=== PATIENT | female | born 1970 | race African-American/Black ===

== ENCOUNTER 2016-08-28 20:00 | Inpatient (IN) | payer BC, OTHER ==
[~2016-08-28] VITALS: Ht 175.3 cm; Wt 78.0 kg
[2016-08-28] MEDS ORDERED: MAG HYDROX/ALUMINUM HYD/SIMETH 30 ML ORAL.SUSP PO PRN (20:15)
[2016-08-28] MEDS ORDERED: ACETAMINOPHEN 325 MG TABLET. PO PRN (20:15)
[2016-08-28] MEDS ORDERED: 0.9 % SODIUM CHLORIDE 10 ML DISP.SYRIN. IV PRN (20:15)
[2016-08-28] MEDS ORDERED: LIDOCAINE 1% PF 30 ML VIAL. INJ PRN (20:15)
[2016-08-28] MEDS ORDERED: CITRIC ACID/SODIUM CITRATE 30 ML SOLUTION. PO PRN (20:15)
[2016-08-28] MEDS ORDERED: FENTANYL PF 100 MCG/2 ML VIAL. IV PRN (20:15)
[2016-08-28] MEDS ORDERED: TERBUTALINE 1 MG/ML VIAL. SQ PRN (20:15)
[2016-08-28] MEDS ORDERED: IBUPROFEN 800 MG TABLET. PO PRN (20:15)
[2016-08-28] MEDS ORDERED: ONDANSETRON PF 4 MG/2 ML VIAL. IV PRN (20:15)
[2016-08-28] MEDS ORDERED: OXYTOCIN 30 UNIT/500 ML PREMIX 500 ML IV PRN ×2 (20:15)
[2016-08-28] MEDS ORDERED: DIPHENHYDRAMINE HCL 25 MG CAPSULE PO PRN ×2 (20:15→20:30)
[2016-08-28 20:50] VITALS: BP 104/60
[2016-08-28] MEDS: IV RINGERS,LACTATED 1000ML 1,000 ML IV SCH (20:58)
[2016-08-28] MEDS ORDERED: DINOPROSTONE 10 MG SUPP.VAG VG ONE (21:00)
[2016-08-28 21:13] LABS: HEMATOCRIT 35.8 % (36.0-47.0); HEMOGLOBIN 11.8 g/dL (12.0-15.5); RED BLOOD COUNT 3.61 x10^6/uL (3.50-5.40); RED CELL DISTRIBUTION WIDTH 14.5 % (11.5-14.5); WHITE BLOOD COUNT 7.9 x10^3/uL (4.0-11.0)
[2016-08-28] MEDS ORDERED: FOLI1TAB16 PO (21:37)
[2016-08-29] MEDS: IV RINGERS,LACTATED 1000ML 1,000 ML IV SCH ×3 (03:56→21:29)
[2016-08-29] MEDS ORDERED: PENICILLIN G K 5,000,000 UNIT in IV NORMAL SALINE 100ML 100 ML IV ONE (06:00)
[2016-08-29] MEDS ORDERED: OXYTOCIN in NORMAL SALINE PREMIX 30 UNIT/500 ML BAG. IV ONE (07:00)
--- NOTE | 2016-08-29 08:31 | PDOC1 ---
OB - History Hx of Present Care: Good Care Ultrasounds: Normal mid trimester US Obstetrical Complications: Other (Oligohydramnios) Medical Complications: None Past Family/Social History * Past Medical, Surgical, Family and Obstetric Histories reviewed from chart. Rubella: Immune RPR/VDRL: Negative GBS Status: Positive HBsAG: Negative OB - Chief Complaint & HPI Date of Admission: Date of Admission: Aug 28, 2016 at 20:00 Chief Complaint/History : 1 Para: 0 EGA: 40 Reason for admission: induction of labor Indication for induction: other (Oligohydramnios) Admission Nurse Assessment Rev: Yes Problems: OB - Admission Exam Physical Exam Vitals: VS - Last 72 Hours, by Label Date Time Temp Pulse Resp B/P Pulse Ox O2 Delivery O2 Flow Rate FiO2 08/28/16 20:50 98.3 68 18 104/60 Room Air 98.3 HEENT: Normal Heart: Regular Rate Lungs: Clear Abdomen: Gravid, Non tender, Soft Extremities: Edema Reflexes: Normal Cervical Dilatation: Fingertip Effacement: 25% Station: -3 Membranes: Intact Heart Rate: Normal Accelerations: Accelerations Present Decelerations: No decelerations Contractions on Admission: >10 Minutes Apart Intensity: Mild Text A: 40 wks IUP Oligohydramnios GBS positive P: Admit for IOL for Oligohyramnios with cervidil, then pitocin. Start Pen G when in active labor. OTF RAMOS Jr, MD Aug 29, 2016 08:31
[2016-08-29] MEDS ORDERED: DINOPROSTONE 10 MG SUPP.VAG VG ONE ×2 (09:00→19:15)
[2016-08-30] MEDS: IV RINGERS,LACTATED 1000ML 1,000 ML IV SCH ×4 (00:24→19:19)
--- NOTE | 2016-08-30 08:06 | PDOC ---
OB Progress Note Date of Service 08/30/16 Time of Evaluation 0755 Notes PT. feeling well. No progress with induction with cervidil x 2. Pt. began to have late decels overnight and had cervidil removed. Will allow patient to shower and then start pitocin. Lab Laboratory Tests Test 08/28/16 20:50 White Blood Count 7.9x10^3/uL (4.0-11.0) Red Blood Count 3.61x10^6/uL (3.50-5.40) Hemoglobin 11.8g/dL (12.0-15.5) Hematocrit 35.8% (36.0-47.0) Mean Corpuscular Volume 99fL (79-100) Mean Corpuscular Hemoglobin 33pg (25-35) Mean Corpuscular Hemoglobin Concent 33g/dL (31-37) Red Cell Distribution Width 14.5% (11.5-14.5) Platelet Count 210x10^3/uL (140-400) RPR Titer Additional Testing Non reactive (Non Reactive) Medications Current Medications Sodium Chloride 3 ml 3 ml QSHIFT PRN IV AFTER MEDS AND BLOOD DRAWS; Start 08/28 at 20:15 Lactated Ringer's (Iv Lactated Ringers) 1,000 ml @ 125 mls/hr Q8H IV Last administered on 08/30/16t 04:17; Start 08/28/16 at 20:03 Fentanyl Citrate (Fentanyl 2ml Vial) 100 mcg PRN Q30MIN PRN IV Severe pain; Start 08/28/16 at 20:15 Acetaminophen (Tylenol) 650 mg PRN Q6HRS PRN PO MILD PAIN / TEMP; Start at 20:15 Ondansetron HCl (Zofran) 4 mg PRN Q4HRS PRN IV NAUSEA/VOMITING; Start 08/28/16 at 20:15 Al Hydroxide/Mg Hydroxide (Mylanta Plus Xs) 30 ml PRN Q4HRS PRN PO HEARTBURN / GAS; Start 08/28/16 at 20:15 Citric Acid/ Sodium Citrate (Bicitra) 30 ml 1X PRN PRN PO DYSPEPSIA; Start 04/05 at 20:15; Stop 08/29/16 at 20:14; Status DC Terbutaline Sulfate (Brethine) 0.25 mg 1X PRN PRN SQ SEE COMMENTS; Start at 20:15; Stop 08/29/16 at 20:14; Status DC Lidocaine HCl 30 ml 30 ml 1X PRN PRN INJ SEE COMMENTS; Start 08/28/16 at 20:15 ; Stop 08/30/16 at 20:14 Oxytocin/Sodium Chloride 500 ml @ 0 mls/hr CONT PRN IV SEE I/O RECORD; Start at 20:15 Oxytocin/Sodium Chloride (Oxytocin Premix Infusion) 500 ml @ 0 mls/hr CONT PRN PRN IV Post delivery bleeding; Start 08/28/16 at 20:15 Ibuprofen 800 mg 800 mg PRN Q6HRS PRN PO PAIN; Start 08/28/16 at 20:15 Penicillin G Potassium [id number] unit/Sodium Chloride 100 ml @ 100 mls/hr 1X ONCE IV ; Start 08/29/16 at 06:00; Stop 08/29/16 at 06:59; Status DC Penicillin G Potassium/Sodium Chloride (Pfizerpen/Iv Sodium Chloride 0.9% 50ml) 50 ml @ 100 mls/hr Q4H IV ; Start 08/29/16 at 10:00 Diphenhydramine HCl (Benadryl) 25 mg PRN Q6HRS PRN PO ITCHING; Start 08/28/16 at 20:15 Dinoprostone (Cervidil) 10 mg 1X ONCE VG Last administered on 08/28/16 21:14 ; Start 08/28/16 at 21:00; Stop 08/28/16 at 21:01; Status DC Diphenhydramine HCl (Benadryl) 50 mg PRN Q6HRS PRN PO ITCHING; Start 08/28/16 at 20:30 Oxytocin/Sodium Chloride (Oxytocin Premix Infusion) 30 unit STK-MED ONCE IV ; Start 08/29/16 at 07:00; Stop 08/29/16 at 08:34; Status DC Dinoprostone (Cervidil) 10 mg 1X ONCE VG Last administered on 08/29/16 09:35 ; Start 08/29/16 at 09:00; Stop 08/29/16 at 09:02; Status DC Dinoprostone (Cervidil) 10 mg 1X ONCE VG Last administered on 08/29/16 21:29 ; Start 08/29/16 at 19:15; Stop 08/29/16 at 19:16; Status DC Active Scripts Active Reported Folic Acid 1 Mg Tablet 1 Mg PO DAILY Exam Abd: soft, non tender NST: Category 1 now. Assessment A: 40 + 2 wks IUP Oligohydramnios AMA P: Start pitocin. If Category 3 then proceed with c/s. OTF RAMOS Jr, MD Aug 30, 2016 08:06
[2016-08-30] MEDS: PENICILLIN G K 2,500,000 UNIT in IV NORMAL SALINE 50ML 50 ML IV SCH ×2 (12:41→16:28)
[2016-08-30] MEDS ORDERED: ROPIVacaine 0.2% IN 0.9%NACL PF 40 MG/20 ML DISP.SYRIN. ONE ×2 (18:37→18:40)
[2016-08-30] MEDS ORDERED: L&D EPIDURAL CASSETTE 100 ML EP ONE (18:38)
[2016-08-30] MEDS ORDERED: L&D EPIDURAL CASSETTE 100 ML PUMP.RESVR. EP ONE (18:40)
--- NOTE | 2016-08-30 22:16 | PDOC ---
VAGINAL DELIVERY DATE DATE: 08/30/16 TIME: 22:14 : 1 Para: 1 EGA: 40 VAGINAL DELIVERY: VTX VACCUM ASSISTED: No PLACENTA: Spontaneous 9/9 SEX: Female WEIGHT Weight [ 3280 gm] Nuchal Cord: No Amniotic Fluid: Clear PAIN: Epidural EPISIOTOMY: No EXTENSION: No EBL 300 ml COMPLICATIONS none CONDITION pt. stable Signs of Intrauterine Infectio: None Shoulder Dystocia: No Problems: OTF RAMOS Jr, MD Aug 30, 2016 22:16
[2016-08-30] MEDS ORDERED: OXYCODONE/APAP 5/325 TABLET. PO PRN (22:30)
[2016-08-30] MEDS ORDERED: BENZOCAINE 20% TOPICAL AEROSOL SPRAY 57GM CAN. TP PRN (22:30)
[2016-08-30] MEDS ORDERED: PHENYLEPH/MINERAL OIL/PETROLAT RECTAL OINTMENT 28GM TUBE. RC PRN (22:30)
[2016-08-30] MEDS ORDERED: OXYTOCIN 30 UNIT/500 ML PREMIX 500 ML IV PRN (22:30)
[2016-08-30] MEDS ORDERED: DIPHENHYDRAMINE HCL 25 MG CAPSULE PO PRN (22:30)
[2016-08-30] MEDS ORDERED: HYDROCORTISONE 1% TOPICAL OINTMENT 30GM TUBE. TP PRN (22:30)
[2016-08-30] MEDS ORDERED: ACETAMINOPHEN 325 MG TABLET. PO PRN (22:30)
[2016-08-30] MEDS ORDERED: SIMETHICONE 80 MG TAB.CHEW PO PRN (22:30)
[2016-08-30] MEDS ORDERED: IBUPROFEN 800 MG TABLET. PO PRN (22:30)
[2016-08-30] MEDS ORDERED: MAGNESIUM HYDROXIDE 2,400 MG/30 ML ORAL.SUSP. PO PRN (22:30)
[2016-08-30] MEDS ORDERED: MAG HYDROX/ALUMINUM HYD/SIMETH 30 ML ORAL.SUSP PO PRN (22:30)
[2016-08-30] MEDS ORDERED: DOCUSATE SODIUM 100 MG CAPSULE. PO PRN (22:30)
[2016-08-30] MEDS ORDERED: ZOLPIDEM 5 MG TABLET. PO PRN (22:30)
[2016-08-30] MEDS ORDERED: 0.9 % SODIUM CHLORIDE 10 ML DISP.SYRIN. IV PRN (22:30)
[2016-08-30] MEDS ORDERED: MMR per PROTOCOL. MC PRN (22:30)
[2016-08-31] MEDS ORDERED: AMMONIA AROMATIC 15% INHALANT AMPUL. ONE (00:34)
[2016-08-31 00:45] VITALS: BP 92/55
[2016-08-31 03:20] VITALS: BP 98/55
[2016-08-31 06:03] VITALS: BP 91/55
[2016-08-31] MEDS ORDERED: FERROUS SULFATE 325 MG TABLET. PO SCH (08:00)
[2016-08-31 08:37] LABS: BASO % 0 % (0-3); EOS % 1 % (0-3); HEMATOCRIT 32.6 % (36.0-47.0); HEMOGLOBIN 10.7 g/dL (12.0-15.5); LYMPH # 1.3 x10^3/uL (1.0-4.8); LYMPH % 11 % (24-48); MEAN CORPUSCULAR HEMOGLOBIN 33 pg (25-35); MEAN CORPUSCULAR HGB CONC 33 g/dL (31-37); MEAN CORPUSCULAR VOLUME 99 fL (79-100); MONO % 9 % (0-9); NEUT % 80 % (31-73); PLATELET COUNT 172 x10^3/uL (140-400); RED CELL DISTRIBUTION WIDTH 14.8 % (11.5-14.5); WHITE BLOOD COUNT 11.8 x10^3/uL (4.0-11.0)
--- NOTE | 2016-08-31 13:36 | PDOC ---
OB Progress Note Date of Service 08/31/16 Time of Evaluation 1335 Notes Pt. feeling well. Lochia minimal. Breast feeding. No complaints. Lab Laboratory Tests Test 08/31/16 08:10 White Blood Count 11.8x10^3/uL (4.0-11.0) Red Blood Count 3.30x10^6/uL (3.50-5.40) Hemoglobin 10.7g/dL (12.0-15.5) Hematocrit 32.6% (36.0-47.0) Mean Corpuscular Volume 99fL (79-100) Mean Corpuscular Hemoglobin 33pg (25-35) Mean Corpuscular Hemoglobin Concent 33g/dL (31-37) Red Cell Distribution Width 14.8% (11.5-14.5) Platelet Count 172x10^3/uL (140-400) Neutrophils (%) (Auto) 80% (31-73) Lymphocytes (%) (Auto) 11% (24-48) Monocytes (%) (Auto) 9% (0-9) Eosinophils (%) (Auto) 1% (0-3) Basophils (%) (Auto) 0% (0-3) Neutrophils # (Auto) 9.4x10^3uL (1.8-7.7) Lymphocytes # (Auto) 1.3x10^3/uL (1.0-4.8) Monocytes # (Auto) 1.0x10^3/uL (0.0-1.1) Eosinophils # (Auto) 0.1x10^3/uL (0.0-0.7) Basophils # (Auto) 0.0x10^3/uL (0.0-0.2) Laboratory Tests Test 08/31/16 08:10 White Blood Count 11.8x10^3/uL (4.0-11.0) Red Blood Count 3.30x10^6/uL (3.50-5.40) Hemoglobin 10.7g/dL (12.0-15.5) Hematocrit 32.6% (36.0-47.0) Mean Corpuscular Volume 99fL (79-100) Mean Corpuscular Hemoglobin 33pg (25-35) Mean Corpuscular Hemoglobin Concent 33g/dL (31-37) Red Cell Distribution Width 14.8% (11.5-14.5) Platelet Count 172x10^3/uL (140-400) Neutrophils (%) (Auto) 80% (31-73) Lymphocytes (%) (Auto) 11% (24-48) Monocytes (%) (Auto) 9% (0-9) Eosinophils (%) (Auto) 1% (0-3) Basophils (%) (Auto) 0% (0-3) Neutrophils # (Auto) 9.4x10^3uL (1.8-7.7) Lymphocytes # (Auto) 1.3x10^3/uL (1.0-4.8) Monocytes # (Auto) 1.0x10^3/uL (0.0-1.1) Eosinophils # (Auto) 0.1x10^3/uL (0.0-0.7) Basophils # (Auto) 0.0x10^3/uL (0.0-0.2) Medications Current Medications Sodium Chloride 3 ml 3 ml QSHIFT PRN IV AFTER MEDS AND BLOOD DRAWS; Start 08/28 at 20:15; Stop 08/30/16 at 22:28; Status DC Lactated Ringer's (Iv Lactated Ringers) 1,000 ml @ 125 mls/hr Q8H IV Last administered on 08/30/16t 19:19; Start 08/28/16 at 20:03 Fentanyl Citrate (Fentanyl 2ml Vial) 100 mcg PRN Q30MIN PRN IV Severe pain; Start 08/28/16 at 20:15 Acetaminophen (Tylenol) 650 mg PRN Q6HRS PRN PO MILD PAIN / TEMP; Start at 20:15; Stop 08/30/16 at 22:28; Status DC Ondansetron HCl (Zofran) 4 mg PRN Q4HRS PRN IV NAUSEA/VOMITING; Start 08/28/16 at 20:15 Al Hydroxide/Mg Hydroxide (Mylanta Plus Xs) 30 ml PRN Q4HRS PRN PO HEARTBURN / GAS; Start 08/28/16 at 20:15; Stop 08/30/16 at 22:28; Status DC Citric Acid/ Sodium Citrate (Bicitra) 30 ml 1X PRN PRN PO DYSPEPSIA; Start 04/05 at 20:15; Stop 08/29/16 at 20:14; Status DC Terbutaline Sulfate (Brethine) 0.25 mg 1X PRN PRN SQ SEE COMMENTS; Start at 20:15; Stop 08/29/16 at 20:14; Status DC Lidocaine HCl 30 ml 30 ml 1X PRN PRN INJ SEE COMMENTS; Start 08/28/16 at 20:15 ; Stop 08/30/16 at 20:14; Status DC Oxytocin/Sodium Chloride 500 ml @ 0 mls/hr CONT PRN IV SEE I/O RECORD Last administered on 08/30/16 08:24; Start 08/28/16 at 20:15; Stop 08/30/16 at 22:29 ; Status DC Oxytocin/Sodium Chloride (Oxytocin Premix Infusion) 500 ml @ 0 mls/hr CONT PRN PRN IV Post delivery bleeding; Start 08/28/16 at 20:15 Ibuprofen 800 mg 800 mg PRN Q6HRS PRN PO PAIN; Start 08/28/16 at 20:15; Stop at 22:29; Status DC Penicillin G Potassium [id number] unit/Sodium Chloride 100 ml @ 100 mls/hr 1X ONCE IV Last administered on 08/30/16 08:24; Start 08/29/16 at 06:00; Stop 05/05 at 06:59; Status DC Penicillin G Potassium/Sodium Chloride (Pfizerpen/Iv Sodium Chloride 0.9% 50ml) 50 ml @ 100 mls/hr Q4H IV Last administered on 08/30/16 16:28; Start at 10:00; Stop 08/31/16 at 08:13; Status DC Diphenhydramine HCl (Benadryl) 25 mg PRN Q6HRS PRN PO ITCHING; Start 08/28/16 at 20:15; Stop 08/30/16 at 22:29; Status DC Dinoprostone (Cervidil) 10 mg 1X ONCE VG Last administered on 08/28/16 21:14 ; Start 08/28/16 at 21:00; Stop 08/28/16 at 21:01; Status DC Diphenhydramine HCl (Benadryl) 50 mg PRN Q6HRS PRN PO ITCHING; Start 08/28/16 at 20:30 Oxytocin/Sodium Chloride (Oxytocin Premix Infusion) 30 unit STK-MED ONCE IV ; Start 08/29/16 at 07:00; Stop 08/29/16 at 08:34; Status DC Dinoprostone (Cervidil) 10 mg 1X ONCE VG Last administered on 08/29/16t 09:35 ; Start 08/29/16 at 09:00; Stop 08/29/16 at 09:02; Status DC Dinoprostone (Cervidil) 10 mg 1X ONCE VG Last administered on 08/29/16t 21:29 ; Start 08/29/16 at 19:15; Stop 08/29/16 at 19:16; Status DC Ropivacaine 40 mg 40 mg STK-MED ONCE .ROUTE ; Start 08/30/16 at 18:37; Stop at 18:38; Status DC Ropivacaine/ Fentanyl/NS (Mhdvnphl-Whouv-TT 3 Mcg-0.1%) 100 ml @ As Directed STK-MED ONCE EP ; Start 08/30/16 at 18:38; Stop 08/30/16 at 18:39; Status DC Sodium Chloride 10 ml 10 ml QSHIFT PRN IV AFTER MEDS AND BLOOD DRAWS; Start at 22:30 Oxytocin/Sodium Chloride (Oxytocin Premix Infusion) 500 ml @ 62.5 mls/hr CONT PRN IV SEE I/O RECORD; Start 08/30/16 at 22:30; Stop 08/31/16 at 06:29; Status DC Acetaminophen (Tylenol) 650 mg PRN Q6HRS PRN PO MILD PAIN / TEMP; Start at 22:30 Ibuprofen (Motrin) 800 mg PRN Q8HRS PRN PO INFLAMMATION/PAIN PREVENTION; Start 08/30/16 at 22:30 Docusate Sodium (Colace) 100 mg PRN BID PRN PO CONSTIPATION; Start 08/30/16 at 22:30 Magnesium Hydroxide (Milk Of Magnesia) 2,400 mg PRN DAILY PRN PO CONSTIPATION; Start 08/30/16 at 22:30 Al Hydroxide/Mg Hydroxide (Mylanta Plus Xs) 30 ml PRN Q4HRS PRN PO HEARTBURN / GAS; Start 08/30/16 at 22:30 Simethicone (Gas-X) 80 mg PRN AFTMEALHC PRN PO GAS / BLOATING; Start 08/30/16 at 22:30 Diphenhydramine HCl (Benadryl) 25 mg PRN Q6HRS PRN PO ITCHING; Start 08/30/16 at 22:30 Benzocaine (Americaine) 1 spray PRN QID PRN TP TOPICAL PAIN; Start 08/30/16 at 22:30 Phenyleph/Shark Oil/Min Oil/Petrol (Preparation H) 1 yana PRN QID PRN RC RECTAL PAIN; Start 08/30/16 at 22:30 Hydrocortisone (Cortaid) 1 yana PRN QID PRN TP PERINEAL PAIN; Start 08/30/16 at 22:30 Ferrous Sulfate (Feosol) 325 mg BIDWMEALS PO ; Start 08/31/16 at 08:00; Stop at 08:13; Status DC Zolpidem Tartrate (Ambien) 5 mg PRN QHS PRN PO INSOMNIA, MAY REPEAT X1; Start 08/30/16 at 22:30 Info (Do NOT chart on this placeholder) 1 ea 1X PRN PRN MC SEE COMMENTS; Start 08/30/16 at 22:30 Info (Do NOT chart on this placeholder) 1 ea 1X PRN PRN MC SEE COMMENTS; Start 08/30/16 at 22:30 Oxycodone/ Acetaminophen (Percocet 5/325) 2 tab PRN Q4HRS PRN PO MODERATE PAIN , SEVERE PAIN; Start 08/30/16 at 22:30 Ammonia (Aromatic Spirit) (Amoply) 1 each STK-MED ONCE .ROUTE ; Start 08/31/16 at 00:34; Stop 08/31/16 at 00:35; Status DC Ropivacaine/ Fentanyl/NS (Sjnvchmi-Lyrcr-CO 3 Mcg-0.1%) 100 ml STK-MED ONCE EP ; Start 08/30/16 at 18:40; Stop 08/31/16 at 08:47; Status DC Ropivacaine 40 mg STK-MED ONCE .ROUTE ; Start 08/30/16 at 18:40; Stop 08/31/16 at 08:47; Status DC Active Scripts Active Reported Folic Acid 1 Mg Tablet 1 Mg PO DAILY Exam Abd: soft,non tender, fundus firm Assessment PPD#1 s/p Plan of Care: Continue current Tx, Mgmt OTF RAMOS Jr, MD Aug 31, 2016 13:36
[2016-08-31 15:00] VITALS: BP 98/63
[2016-08-31 15:01] VITALS: BP 99/60
[2016-08-31 21:30] VITALS: BP 100/70
[2016-09-01 05:59] VITALS: BP 92/50
[2016-09-01] MEDS ORDERED: FLUTICASONE 50MCG/NASAL SPRAY 16GM BOTTLE. NS SCH (09:00)
--- NOTE | 2016-09-01 10:01 | PDOC3 ---
OB DISCHARGE SUMMARY DATE OF ADMISSION: 08/28/16 DATE OF DISCHARGE: 09/01/16 REASON FOR ADMISSION: Induction of labor PROCEDURES: Biophysicial Profile INTRAPARTUM PROCEDURES: Spontanous Vag Deliv PROCEDURES: None OPERATIONS: None DISCHARGE DIAGNOSIS: Term Delivered DISCHARGE INFORMATION: Activity, Diet HOSPITAL COURSE Unremarkable CONDITION AT DISCHARGE Stable CACHORRO HAMPTON MD Sep 01, 2016 10:01
[2016-09-01] MEDS ORDERED: HYDR-971 PO (10:06)
[2016-09-01] MEDS ORDERED: NAPR500T3 PO (10:06)
[2016-09-01 10:27] VITALS: BP 89/51
[2016-09-01 15:10] VITALS: BP 106/66
[2016-09-01 18:31] VITALS: BP 98/53
== END 2016-09-01 18:41 | disposition home or self-care (01) | DRG 775 ==
LOC: 3 SO LND 20:00 → 3 NORTH 08-31 01:00
PROVIDERS: ADMIT Obstetrics & Gynecology; ATTEND Obstetrics & Gynecology
PROC: 10E0XZZ Delivery of Products of Conception, External Approach (ICD-10-PCS; principal; 2016-08-30)
DX: O41.03X0 Oligohydramnios, third trimester, not applicable or unspecified (principal); Z37.0 Single live birth; Z3A.40 40 weeks gestation of pregnancy; O99.824 Streptococcus B carrier state complicating childbirth
CPT/HCPCS: 36415; 85027; 86593; 86850; 86900; 86901; J2540; J2590; J2795; J7120